=== PATIENT | male | born 1990 | race Caucasian/White ===

== ENCOUNTER 2018-07-15 20:35 | Emergency (ER) | payer BC ==
[~2018-07-15] VITALS: Ht 182.9 cm; Wt 104.8 kg
--- NOTE | 2018-07-15 20:45 | NUR ---
Pt. ambulated into ED w/ c/o anxiety, states he had a mental breakdown yesterday at work, denies AH/VH/SI/HI, A/Ox4, VSS,
--- NOTE | 2018-07-15 20:52 | NUR ---
at bedside for MSE
[2018-07-15] MEDS ORDERED: LORAZEPAM 1 MG TABLET ONE (20:56)
--- NOTE | 2018-07-15 20:58 | NUR ---
Patient discharged to home in stable conditon. Written and verbal after care instructions given. Patient verbalizes understanding of instructions. Pt. d/c w/ prescription per MD order, d/c papers signed, ID band removed, ambulated off unit w/ steady gait, NAD
[2018-07-15] MEDS ORDERED: LORAZEPAM 0.5 MG TABLET PO ONE (21:00)
== END 2018-07-15 21:02 | disposition home or self-care (01) ==
LOC: ER 20:37
DX: F41.0 Panic disorder [episodic paroxysmal anxiety] (principal)
CPT/HCPCS: A4663